=== PATIENT | male | born 1985 | race African-American/Black ===

== ENCOUNTER 2017-01-01 09:30 | Outpatient (CLI) | payer MEDICARE, MEDICAID ==
--- NOTE | 2017-01-05 09:42 | RAD ---
LEFT WRIST 3 VIEWS: HISTORY: Left foot pain, fall. FINDINGS: There is a vertical fracture without significant displacement involving the distal radius with exten nisreen into the articular surface. Also noted is an avulsion fracture of the ulnar styloid. IMPRESSION: Fractures of the left distal radius and ulna.
== END 2017-01-01 09:31 | disposition home or self-care (01) ==
LOC: RAD-FRANK 09:30
PROVIDERS: ATTEND Nurse Practitioner Family
DX: M25.532 Pain in left wrist (principal); S52.502A Unspecified fracture of the lower end of left radius, initial encounter for closed fracture; S52.602A Unspecified fracture of lower end of left ulna, initial encounter for closed fracture

== ENCOUNTER 2017-05-17 09:56 | Outpatient (CLI) | payer MEDICARE, MEDICAID ==
--- NOTE | 2017-05-17 11:38 | RAD ---
RIGHT SHOULDER 3 VIEWS: Date: 05/17/17 HISTORY: Right shoulder pain. FINDINGS/IMPRESSION: No fracture, dislocation, or bony destruction is seen. POS: [facility]
== END 2017-05-17 09:57 | disposition home or self-care (01) ==
LOC: RAD-FRANK 09:56
PROVIDERS: ATTEND Nurse Practitioner Family
DX: M25.511 Pain in right shoulder (principal)

== ENCOUNTER 2017-10-08 09:09 | Outpatient (CLI) | payer MEDICARE, MEDICAID ==
--- NOTE | 2017-10-08 09:54 | RAD ---
FOUR VIEWS RIGHT ELBOW: Date: 10-08-17 Comparison: None. History: Right sided elbow pain. FINDINGS: There is enthesophyte formation at the insertion of the triceps tendon. No elbow joint effusion, frac ture, or evidence of dislocation. Mild osteophyte is seen at the level of the coronoid process. IMPRESSION: Chronic appearing findings as detailed above. No acute fracture, dislocation, or elbow joint effusion . POS: [facility]
== END 2017-10-08 09:10 | disposition home or self-care (01) ==
LOC: RAD-FRANK 09:09
PROVIDERS: ATTEND Nurse Practitioner Family
DX: M25.521 Pain in right elbow (principal); M77.9 Enthesopathy, unspecified

== ENCOUNTER 2018-07-14 11:36 | Emergency (ER) | payer MEDICARE ==
--- NOTE | 2018-07-14 12:27 | RAD ---
RIGHT HAND THREE VIEWS: History: Injury to hand. FINDINGS: Carpals appear intact. There is a minimally displaced fracture involving the base of the fifth metacarpal. Metacarpals otherwise appear intact. The phalanges appear intact. IMPRESSION: Fracture base of fifth metacarpal. POS: [facility]
== END 2018-07-14 12:48 | disposition home or self-care (01) ==
LOC: ERS 11:36
DX: S62.316A Displaced fracture of base of fifth metacarpal bone, right hand, initial encounter for closed fracture (principal); W22.8XXA Striking against or struck by other objects, initial encounter

== ENCOUNTER 2019-02-01 20:35 | Emergency (ER) | payer MEDICARE ==
--- NOTE | 2019-02-01 21:11 | RAD ---
XR Shoulder Lt 3 View STANDARD: 02/01/2019 8:44 PM CLINICAL INDICATION: Pain COMPARISON: 04/02/2016 FINDINGS: No acute fracture. Subtle impaction deformity of the superior lateral left humeral head is stable, li brad a Hill-Sachs deformity, chronic. IMPRESSION: 1. No acute osseous abnormality. 2. Stable-appearing Hill-Sachs deformity of the left humeral head.
== END 2019-02-01 21:32 | disposition home or self-care (01) ==
LOC: ERS 20:35
DX: S49.92XA Unspecified injury of left shoulder and upper arm, initial encounter (principal); I10 Essential (primary) hypertension; W51.XXXA Accidental striking against or bumped into by another person, initial encounter; Y93.61 Activity, american tackle football; Y99.8 Other external cause status; Z79.899 Other long term (current) drug therapy

== ENCOUNTER 2019-06-01 08:55 | Outpatient (CLI) | payer MEDICARE ==
--- NOTE | 2019-06-01 09:11 | RAD ---
Exam: XR Knee Lt 4 View STANDARD HISTORY: Left knee pain after a fall. COMPARISON: None FINDINGS: No acute fracture, dislocation, or other acute osseous abnormality is identified. IMPRESSION: No acute osseous abnormality is identified.
== END 2019-06-01 08:56 | disposition home or self-care (01) ==
LOC: RAD-FRANK 08:55
PROVIDERS: ATTEND Nurse Practitioner Family
DX: M25.562 Pain in left knee (principal)

== ENCOUNTER 2019-06-21 13:41 | Outpatient (CLI) | payer MEDICARE ==
--- NOTE | 2019-06-21 13:57 | RAD ---
XR Heel Rt 2 View STANDARD HISTORY: Right heel pain FINDINGS: The calcaneus is intact. No fracture or bony destruction is identified.
== END 2019-06-21 13:42 | disposition home or self-care (01) ==
LOC: RAD-FRANK 13:41
PROVIDERS: ATTEND Nurse Practitioner Family
DX: M79.671 Pain in right foot (principal)

== ENCOUNTER 2019-09-04 09:00 | Outpatient (CLI) | payer MEDICARE ==
--- NOTE | 2019-09-04 09:10 | RAD ---
Right hand 3 views HISTORY: Injury. COMPARISON: 07/14/2018. FINDINGS: Nondisplaced oblique fracture through the fifth metacarpal neck is present with mild apex m edial and posterior angulation. No evidence of intra-articular extension. Cortical remodeling at the base of the fifth metacarpal consistent with old healed fracture. IMPRESSION : Boxer's fracture right fifth metacarpal.
== END 2019-09-04 09:01 | disposition home or self-care (01) ==
LOC: RAD-FRANK 09:00
PROVIDERS: ATTEND Nurse Practitioner Family
DX: M79.641 Pain in right hand (principal); S62.306A Unspecified fracture of fifth metacarpal bone, right hand, initial encounter for closed fracture

== ENCOUNTER 2020-10-21 15:24 | Outpatient (CLI) | payer MEDICARE | END 2020-10-21 15:25 | disposition home or self-care (01) | LOC: RAD-FRANK 15:24 | PROVIDERS: ATTEND Nurse Practitioner Family | DX: M25.562 Pain in left knee (principal) ==

== ENCOUNTER 2021-12-20 07:15 | Emergency (ER) | payer OTHER, MEDICARE, MEDICAID ==
[2021-12-20 07:51] LABS: #Basophils 0.1 thou/uL (0.0-0.2); #Eosinphils 0.1 thou/uL (0.0-0.7); #Lymphocytes 2.3 thou/uL (1.20-3.40); #Monocytes 0.6 thou/uL (0.11-0.59); #Neutrophils 3.9 thou/uL (1.40-6.50); %Basophils 1.1 % (0.0-1.0); %Monocytes 8.8 % (0.0-10.0); %Neutrophils 56.1 % (42.0-75.0); Hemoglobin 15.3 g/dL (14.0-18.0); Mean Corpuscular HGB CONC 32.2 g/dL (32.0-36.0); Mean Corpuscular Hemoglobin 29.7 pg (27.0-31.0); Mean Corpuscular Volume 92.5 fL (78.0-98.0); Mean Platelet Volume 7.4 fL (7.4-10.4); Platelet Count 209 thou/uL (130-400); RBC Distribution Width 13.1 % (11.5-14.5); Red Blood Cell (RBC) Count 5.15 mill/uL (4.70-6.10); White Blood Cell (WBC) Count 6.9 thou/uL (4.8-10.8)
[2021-12-20 08:14] LABS: ALT (SGPT) 32 U/L (8-55); AST (SGOT) 38 U/L (5-34); Albumin 4.5 g/dL (3.5-5.0); Alcohol 73 mg/dL (Less than 10); Alkaline Phosphatase 49 U/L (40-110); Anion Gap 18 mmol/L (10-20); BUN (Urea Nitrogen) 11 mg/dL (8.9-20.6); Bilirubin, Total 1.2 mg/dL (0.2-1.2); Calc. Creatinine Clearance 0 mL/min (70-130); Calcium 8.9 mg/dL (7.8-10.44); Carbon Dioxide 22 mmol/L (22-29); Chloride 105 mmol/L (98-107); Estimated GFR 76; Globulin 2.8 g/dL (2.4-3.5); Glucose 122 mg/dL (70-105); Potassium 3.6 mmol/L (3.5-5.1); Protein, Total 7.3 g/dL (6.0-8.3); Sodium 141 mmol/L (136-145)
[2021-12-20] MEDS ORDERED: Iopamidol-370 76% 500 ML 1 ML ONE (09:18)
== END 2021-12-20 09:29 | disposition home or self-care (01) ==
LOC: ERS 07:15
DX: S82.002A Unspecified fracture of left patella, initial encounter for closed fracture (principal); S82.402A Unspecified fracture of shaft of left fibula, initial encounter for closed fracture; I10 Essential (primary) hypertension; V49.40XA Driver injured in collision with unspecified motor vehicles in traffic accident, initial encounter; Y92.410 Unspecified street and highway as the place of occurrence of the external cause
CPT/HCPCS: 70450; 71260; 72125; 74177; 80053; 80307; 85025; 96372; G0390; Q9967

== ENCOUNTER 2022-01-15 10:22 | Outpatient (CLI) | payer MEDICARE, MEDICAID ==
[2022-01-15 12:43] LABS: Hemoglobin 14.8 g/dL (13.5-17.5); Mean Corpuscular HGB CONC 33.1 g/dL (32.0-36.0); Mean Corpuscular Hemoglobin 29.5 pg (27.0-33.0); Mean Corpuscular Volume 89.2 fl (81.2-95.1); Mean Platelet Volume 9.8 fl (7.4-10.4); Platelet Count 247 10x3/uL (150-450); RBC Distribution Width 13.4 % (11.5-14.5); Red Blood Cell (RBC) Count 5.01 10x6/uL (4.32-5.72); White Blood Cell (WBC) Count 4.8 10x3/uL (3.5-10.5)
== END 2022-01-15 10:23 | disposition home or self-care (01) ==
LOC: LABBT 10:22
PROVIDERS: ATTEND Orthopaedic Surgery Hand Surgery
DX: Z01.812 Encounter for preprocedural laboratory examination (principal); S62.113A Displaced fracture of triquetrum [cuneiform] bone, unspecified wrist, initial encounter for closed fracture; S63.592A Other specified sprain of left wrist, initial encounter; Z20.822 Contact with and (suspected) exposure to COVID-19
CPT/HCPCS: 85027; 87811

== ENCOUNTER 2022-04-16 14:18 | Outpatient (CLI) | payer MEDICARE, MEDICAID | END 2022-04-16 14:19 | disposition home or self-care (01) | LOC: MRI 14:18 → TBSIIMAG 14:19 | PROVIDERS: ATTEND Orthopaedic Surgery | DX: M75.122 Complete rotator cuff tear or rupture of left shoulder, not specified as traumatic (principal) ==

== ENCOUNTER 2022-05-11 09:05 | Outpatient (CLI) | payer MEDICARE, MEDICAID ==
[2022-05-11 09:45] LABS: #Basophils 0.1 10x3/uL (0.0-0.2); #Eosinphils 0.1 10x3/uL (0.0-0.5); #Monocytes 0.5 10x3/uL (0.0-1.1); #Neutrophils 2.2 10x3/uL (1.5-8.4); %Basophils 1.3 % (0.0-2.0); %Eosinophils 1.5 % (0.0-6.0); %Monocytes 8.8 % (0.0-10.0); %Neutrophils 43.2 % (40.0-75.0); Hemoglobin 15.3 g/dL (13.5-17.5); Mean Corpuscular HGB CONC 32.8 g/dL (32.0-36.0); Mean Corpuscular Hemoglobin 29.2 pg (27.0-33.0); Mean Corpuscular Volume 88.9 fl (81.2-95.1); Mean Platelet Volume 9.3 fl (7.4-10.4); Platelet Count 223 10x3/uL (150-450); RBC Distribution Width 13.4 % (11.5-14.5); Red Blood Cell (RBC) Count 5.24 10x6/uL (4.32-5.72); White Blood Cell (WBC) Count 5.2 10x3/uL (3.5-10.5)
== END 2022-05-11 09:06 | disposition home or self-care (01) ==
LOC: LABBT 09:05
PROVIDERS: ATTEND Orthopaedic Surgery
DX: Z01.812 Encounter for preprocedural laboratory examination (principal); S46.012A Strain of muscle(s) and tendon(s) of the rotator cuff of left shoulder, initial encounter
CPT/HCPCS: 85025; 93005; 93010

== ENCOUNTER 2022-05-14 06:02 | Day surgery (SDC) | payer MEDICARE, MEDICAID ==
[2022-05-13 10:53] VITALS: BMI 23.7
[2022-05-14] MEDS ORDERED: Midazolam HCl 2 mg/2 ml Vial ONE (06:06)
[2022-05-14] MEDS ORDERED: fentaNYL PF 100 MCG/2 ML SYRINGE ONE (06:07)
[2022-05-14] MEDS ORDERED: Lidocaine 2% 6 ML SYR ONE (06:07)
[2022-05-14] MEDS ORDERED: PHENYLEPHRINE-NS 100 MCG/ML 10 ML SYRINGE ONE ×2 (06:08→07:03)
[2022-05-14] MEDS ORDERED: Bupivacaine/Epinephrine 0.25% 30 ML VIAL ONE (06:29)
[2022-05-14] MEDS ORDERED: Ropivacaine 0.5% HCl/PF (150 MG/30 ML VIAL) ONE (06:35)
[2022-05-14] MEDS ORDERED: Lidocaine 1% (PF) 30 ML VIAL ONE (06:35)
[2022-05-14] MEDS ORDERED: Ropivacaine 0.2% HCl/PF 0 ML ONE (06:35)
[2022-05-14] MEDS ORDERED: CEFAZOLIN 2 GM VIAL ONE (06:59)
[2022-05-14] MEDS ORDERED: Sodium Chloride 0.9% 100 ML ONE (06:59)
[2022-05-14] MEDS ORDERED: Ondansetron PF 4 MG/2 ML Vial IVP PRN (07:00)
[2022-05-14] MEDS ORDERED: Zolpidem Tartrate 5 MG TAB PO PRN (07:00)
[2022-05-14] MEDS ORDERED: Ketorolac Tromethamine 30 MG/ML VIAL IVP PRN (07:00)
[2022-05-14] MEDS ORDERED: traMADol HCl 50 MG TAB PO PRN ×2 (07:00)
[2022-05-14] MEDS ORDERED: Promethazine HCl 25 MG/ML VIAL IM PRN (07:00)
[2022-05-14] MEDS ORDERED: Ropivacaine 0.2% 550 ML 550 ML NERVE BLCK SCH (07:00)
[2022-05-14] MEDS ORDERED: HYDROcodone/Acetaminophen 10/325 mg Tablet PO PRN ×2 (07:00)
[2022-05-14] MEDS ORDERED: PROPOFOL 200 MG/20 ML VIAL ONE (07:03)
[2022-05-14] MEDS ORDERED: Ondansetron PF 4 MG/2 ML Vial ONE (07:03)
[2022-05-14] MEDS ORDERED: Rocuronium Bromide 10 MG/ML (10ML VIAL) ONE (07:03)
[2022-05-14] MEDS ORDERED: Dexamethasone 20 MG/5 ML VIAL ONE (07:03)
[2022-05-14] MEDS ORDERED: HYDROmorphone 2 MG/ML VIAL ONE (08:53)
== END 2022-05-14 12:10 | disposition home or self-care (01) ==
LOC: SDC 06:02
PROVIDERS: ATTEND Orthopaedic Surgery
PROC: 0LM24ZZ Reattachment of Left Shoulder Tendon, Percutaneous Endoscopic Approach (ICD-10-PCS; principal; 2022-05-14)
DX: S46.012A Strain of muscle(s) and tendon(s) of the rotator cuff of left shoulder, initial encounter (principal); S62.115A Nondisplaced fracture of triquetrum [cuneiform] bone, left wrist, initial encounter for closed fracture; S82.832A Other fracture of upper and lower end of left fibula, initial encounter for closed fracture; Z79.899 Other long term (current) drug therapy; V89.2XXA Person injured in unspecified motor-vehicle accident, traffic, initial encounter
CPT/HCPCS: 29827; A4306; C1713; J1100; J1170; J2001; J2250; J2405; J2704; J2795; J3490

== ENCOUNTER 2022-08-07 15:52 | Outpatient (CLI) | payer MEDICARE, MEDICAID | END 2022-08-07 15:53 | disposition home or self-care (01) | LOC: TBSIIMAG 15:52 | PROVIDERS: ATTEND Neurological Surgery | DX: M54.50 Low back pain, unspecified (principal) | CPT/HCPCS: 72120 ==